=== PATIENT | male | born 1985 | race Caucasian/White ===

== ENCOUNTER 2017-01-22 14:13 | Emergency (ER) | payer BC ==
[~2017-01-22] VITALS: Ht 180.3 cm; Wt 102.0 kg
[2017-01-22 14:14] VITALS: Ht 180.3 cm; Wt 102.0 kg
[2017-01-22] MEDS ORDERED: LORAZEPAM 1 MG TAB PO ONE (15:00)
[2017-01-22 15:07] LABS: ADD SCAN DIFF NO
[2017-01-22 15:10] LABS: BASOPHILS % 0.4 % (0.0-2.0); EOSINOPHILS % 0.3 % (0.0-7.0); HEMATOCRIT 44.1 % (42.0-52.0); HEMOGLOBIN 14.8 g/dl (14.0-18.0); LYMPHOCYTES # 2.4 10^3/ul (0.8-2.9); LYMPHOCYTES % 36.5 % (15.0-51.0); MEAN CORPUSCULAR HEMOGLOBIN 27.7 pg (29.0-33.0); MEAN CORPUSCULAR HGB CONC 33.6 g/dl (32.0-37.0); MEAN CORPUSCULAR VOLUME 82.6 fl (82.0-101.0); MEAN PLATELET VOLUME 10.4 fl (7.4-10.4); MONOCYTE # 0.3 10^3/ul (0.3-0.9); MONOCYTES % 5.1 % (0.0-11.0); NEUTROPHIL # 3.8 10^3/ul (1.6-7.5); NEUTROPHILS % 57.6 % (39.0-77.0); PLATELET COUNT 256 10^3/UL (140-415); RED BLOOD COUNT 5.34 10^6/ul (4.70-6.10); RED CELL DISTRIBUTION WIDTH 12.2 % (11.5-14.5); WHITE BLOOD COUNT 6.7 10^3/ul (4.8-10.8)
[2017-01-22 15:22] LABS: ALBUMIN 4.5 g/dl (3.3-4.9); ALBUMIN/GLOBULIN RATIO 1.28; BILIRUBIN,INDIRECT 0.5 mg/dl (0-1.1); BILIRUBIN,TOTAL 0.5 mg/dl (0.2-1.3); CALCIUM 9.1 mg/dl (8.4-10.2); CREATININE 0.83 mg/dl (0.61-1.24)
--- NOTE | 2017-01-22 15:51 | RADRPT ---
PROCEDURE: XR Chest AP portable CLINICAL INDICATION: Short of breath TECHNIQUE: An AP portable radiograph of the chest was submitted. COMPARISON: None. FINDINGS: Support Hardware: None Cardiovascular: The cardiovascular silhouette appears unremarkable. Lung Gracia: The lung gracia appear clear with no nodule, alveolar infiltrate, or interstitial promi nence evident. Pleural Spaces: No pneumothorax or pleural effusion is identified. Osseous Structures: The osseous structures appear intact. Soft Tissues: The soft tissues appear unremarkable. IMPRESSION: Unremarkable portable chest. Physician Srini Date Time Electronically viewed and signed by Alo Fulton Physician on 01/22/2017 15:51 RH/
[2017-01-22] MEDS ORDERED: LORA-441 PO (16:00)
[2017-01-22 16:08] VITALS: BP 140/95; PULSE 85; RESP 16
--- NOTE | 2017-01-22 16:12 | ERD ---
ER Documentation Chief Complaint Date/Time DATE: 01/22/17 TIME: 16:09 Chief Complaint SOB x 1 hour HPI This is a 31-year-old male that presents to the ER with shortness of breath that started over the last hour. Patient was [place] he states that the [place] was very hot, he began to feel short of breath. Patient walked out of the [place] to get some fresh air however continue to feel short of breath. Patient then began to feel dizzy and lightheaded. When he was driving to the ER he began to experience palpitations which made shortness of breath worse. Patient has had episodes like this in the past which lasted a few seconds however this episode lasted longer became worried. The last episode occurred at the dentist while patient was getting a root canal. Patient denies any chest pain. He denies any recent travel. He denies any leg pain, redness, swelling. ROS 12 point review of systems was done, all negative except per HPI. Medications Home Meds Active Scripts Lorazepam* (Ativan*) 0.5 Mg Tablet, 0.5 MG PO Q8, #10 TAB Prov:SANTAKIM C 01/22/17 Allergies Allergies: Coded Allergies: No Known Allergy (Unverified , 01/22/17) PMhx/Soc Medical and Surgical Hx: pt denies Medical Hx, pt denies Surgical Hx Physical Exam Vitals Vital Signs Date Time Temp Pulse Resp B/P Pulse Ox O2 Delivery O2 Flow Rate FiO2 01/22/17 14:14 97.3 86 18 142/94 99 Physical Exam GENERAL: The patient is well developed and appropriate for usual state of health , in no apparent distress. HEENT: Atraumatic. Conjunctivae are pink. Pupils equal, round, and reactive to light. Extraocular muscles are grossly intact. Bilateral tympanic membranes are clear with no evidence of erythema, effusion or dulling of the light reflex. The oropharynx is clear with no erythema or exudates. NECK: C-spine is soft and supple. There is no cervical lymphadenopathy. CHEST: Clear to auscultation bilaterally. There are no rales, wheezes or rhonchi. HEART: Regular rate and rhythm. No murmurs, clicks, rubs or gallops. ABDOMEN: Soft, nontender and nondistended. Good bowel sounds. No rebound or guarding. No gross peritonitis. No gross organomegaly or masses. No Waldron sign or McBurney point tenderness. No pulsatile masses. BACK: No midline or flank tenderness. EXTREMITIES: Equal pulses bilaterally. There is no peripheral clubbing, cyanosis or edema. No focal swelling or erythema. Full range of motion. Grossly neurovascularly intact. NEURO: Alert and oriented. Cranial nerves II through XII are intact. Motor strength in all 4 extremities with 5/5 strength. Sensation grossly intact. Normal speech and gait. SKIN: There is no apparent rash or petechia. The skin is warm and dry. Result Diagram: 01/22/17 1450 01/22/17 1450 Results 24 hrs Laboratory Tests Test 01/22/17 14:50 White Blood Count 6.710^3/ul Red Blood Count 5.3410^6/ul Hemoglobin 14.8g/dl Hematocrit 44.1% Mean Corpuscular Volume 82.6fl Mean Corpuscular Hemoglobin 27.7pg Mean Corpuscular Hemoglobin Concent 33.6g/dl Red Cell Distribution Width 12.2% Platelet Count 87974^3/UL Mean Platelet Volume 10.4fl Neutrophils % 57.6% Lymphocytes % 36.5% Monocytes % 5.1% Eosinophils % 0.3% Basophils % 0.4% Nucleated Red Blood Cells % 0.0/100WBC Neutrophils # 3.810^3/ul Lymphocytes # 2.410^3/ul Monocytes # 0.310^3/ul Eosinophils # 0.010^3/ul Basophils # 0.010^3/ul Nucleated Red Blood Cells # 0.010^3/ul Sodium Level 137mmol/L Potassium Level 4.0mmol/L Chloride Level 104mmol/L Carbon Dioxide Level 25mmol/L Anion Gap 12 Blood Urea Nitrogen 14mg/dl Creatinine 0.83mg/dl Glucose Level 101mg/dl Calcium Level 9.1mg/dl Total Bilirubin 0.5mg/dl Direct Bilirubin 0.00mg/dl Indirect Bilirubin 0.5mg/dl Aspartate Amino Transf (AST/SGOT) 42IU/L Alanine Aminotransferase (ALT/SGPT) 71IU/L Alkaline Phosphatase 114IU/L Total Protein 8.0g/dl Albumin 4.5g/dl Globulin 3.50g/dl Albumin/Globulin Ratio 1.28 Current Medications Medications (Trade) Dose Ordered Sig/Ritika Route PRN Reason Start Time Stop Time Status Last Admin Dose Admin Lorazepam (Ativan) 1 mg ONCE ONCE PO 01/22/17 15:00 01/22/17 15:01 DC 01/22/17 14:50 Procedures/MDM Differential diagnosis includes but is not limited to; STEMI, dissection, pneumothorax, PE, esophageal rupture, tamponade, pneumonia, pericarditis, GERD, musculoskeletal, endocarditis, anxiety. At this time patient's shortness of breath and palpitations is likely anxiety. Suspicion for acute cardiac etiology is low. EKG was taken and read by Dr. Harrison. [address] elevation or T-wave inversion. PERC criteria is negative. Patient is to follow -up with his primary care doctor within 1-2 days or return to ER sooner if symptoms worsen. My medical decision making was discussed with the patient, he understands and agrees with plan. Departure Diagnosis: Primary Impression: Palpitations Additional Impressions: Shortness of breath Dizziness Condition: Stable Patient Instructions: Coping with Shortness of Breath: Controlling Stress, Possible Causes of Dizziness or Fainting Additional Instructions: Call your primary care doctor TOMORROW for an appointment during the next 1-2 days.See the doctor sooner or return here if your condition worsens before your appointment time. KIM PRATT Jan 22, 2017 16:12
== END 2017-01-22 16:12 | disposition home or self-care (01) ==
LOC: FTE 14:13
DX: R00.2 Palpitations (principal); R42 Dizziness and giddiness
CPT/HCPCS: 71010; 80053; 85025; 93005

== ENCOUNTER 2017-03-20 19:47 | Emergency (ER) | payer BC ==
[~2017-03-20] VITALS: Ht 182.9 cm; Wt 102.0 kg
[~2017-03-20 19:47] MED LIST: LORA-441 PO
[2017-03-20 20:00] VITALS: Ht 182.9 cm; Wt 102.0 kg
[2017-03-20] MEDS ORDERED: IBUP-1542 PO (20:24)
[2017-03-20] MEDS ORDERED: ALBU8.5H3 INH (20:24)
[2017-03-20] MEDS ORDERED: GUAI120S26 PO (20:24)
[2017-03-20] MEDS ORDERED: FLUT9.9S NASAL (20:24)
[2017-03-20] MEDS ORDERED: CETI10CA PO (20:24)
--- NOTE | 2017-03-20 20:50 | ERD ---
ER Documentation Chief Complaint Date/Time DATE: 03/20/17 TIME: 20:[address] for 2 days HPI 32-year-old male presents in emergency department for complaints of sore throat for 2 days. Patient described the pain as burning pain, 6/10 scale, is worse upon swallowing. Patient did not take any medications to help with symptoms. Patient is also having dry cough, does not cough up any phlegm or blood. Patient does not have any shortness breath has episodes of wheezing at times. Patient does not have any sick contacts. Patient did not take her medications up with symptoms. Patient has been having on and off fever. ROS All systems reviewed and are negative except as per history of present illness. Medications Home Meds Active Scripts Fluticasone Propionate (Flonase Allergy Relief) 9.9 Ml [place].susp, 1 SPRAY NASAL BID, #1 BOTTLE TO EACH NOSTRIL Prov:RASHMI ANTOINE NP 03/20/17 Ibuprofen* (Motrin*) 600 Mg Tab, 600 MG PO Q6H Y for PAIN AND OR ELEVATED TEMP, #30 TAB Prov:RASHMI ANTOINE NP 03/20/17 Cetirizine Hcl* (Zyrtec*) 10 Mg Capsule, 10 MG PO DAILY, #30 TAB.CHEW Prov:RASHMI ANTOINE NP 03/20/17 Pcfwytmvpal-E-Vhihttmuxi Hb* (Guaifenesin* DM Syrup) 120 Ml Syrup, 10 ML PO Q4H Y for COUGH, #120 ML Prov:RASHMI ANTOINE NP 03/20/17 Albuterol Sulfate* (Proair HFA*) 8.5 Gm Hfa.aer.ad, 2 PUFF INH Q4H Y for WHEEZING AND SOB, #1 INHALER Prov:RASHMI ANTOINE NP 03/20/17 Lorazepam* (Ativan*) 0.5 Mg Tablet, 0.5 MG PO Q8, #10 TAB Prov:KIM PRATT 01/22/17 Allergies Allergies: Coded Allergies: No Known Allergy (Unverified , 01/22/17) PMhx/Soc Immunizations: Up to date Medical and Surgical Hx: pt denies Medical Hx, pt denies Surgical Hx FmHx Family History: No coronary disease, No diabetes, No other Physical Exam Vitals Vital Signs Date Time Temp Pulse Resp B/P Pulse Ox O2 Delivery O2 Flow Rate FiO2 03/20/17 20:00 99.6 97 20 152/85 97 Physical Exam GENERAL: The patient is well developed and appropriate for usual state of health, in no apparent distress. HEENT: Atraumatic. Ears: Normal tympanic membrane, no erythema or bulging. No ear canal swelling. No ear discharge. Nose: Erythematous nasal turbinates with clear nasal discharge. Normal nasal discharge. Throat: oropharynx erythematous with postnasal drip. No tonsillar swelling or tonsillar exudates. No lymphadenopathy. CHEST: Clear to auscultation bilaterally. There are no rales, wheezes or rhonchi. HEART: Regular rate and rhythm. No murmurs, clicks, rubs or gallops. No S3 or S4. ABDOMEN: Soft, nontender and nondistended. Good bowel sounds. No rebound or guarding. No gross peritonitis. No gross organomegaly or masses. No Waldron sign or McBurney point tenderness. BACK: No midline or flank tenderness. EXTREMITIES: Equal pulses bilaterally. There is no peripheral clubbing, cyanosis or edema. No focal swelling or erythema. Full range of motion. Grossly neurovascularly intact. NEURO: Alert and oriented. Cranial nerves 2-12 intact. Motor strength in all 4 extremities with 5/5 strength. Sensation grossly intact. Normal speech and gait. SKIN: There is no apparent rash or petechia. The skin is warm and dry. HEMATOLOGIC AND LYMPHATIC: There is no evidence of excessive bruising or lymphedema. No gross cervical, axillary, or inguinal lymphadenopathy. Procedures/MDM Medical Decision Making: Patient symptoms are most likely consistent with acute bronchitis, which viral in origin. There is low suspicion for Pneumonia at this time since patients lungs sounds are clear, patient O2 saturation is normal and patient doesnt show any respiratory distress. Radiology exam is not indicated at this time. There is low suspicion for other cardiopulmonary emergencies at this time such as CHF, Pulmonary Embolism, Pneumothorax or any other cardiopulmonary emergencies at this time. There is low suspicion for sepsis. Patient appears well and is hemodynamically stable. Fever is controlled with medicines. . Disposition: Home. Condition: Stable Prescriptions: Guaifenesin DM Zyrtec ibuprofen albuterol Flonase Instructions: Patient is advised to take medications as prescribed. Patient is advised to rest. Patient advised to increase fluid intake, do humidifier at home and if possible, do salt water gargles. Patient is advised that if symptoms are worse, shortness of breath, uncontrolled fever, stridor, vomiting, worst signs and symptoms to return to emergency department immediately. Otherwise, patient is advised to follow up with primary doctor in 5-7 days. Departure Diagnosis: Primary Impression: Acute bronchitis Bronchitis organism: unspecified organism Qualified Code: J20.9 - Acute bronchitis, unspecified organism Condition: Stable Patient Instructions: Bronchitis With Wheezing (Adult) RASHMI ANTOINE NP Mar 20, 2017 20:50
== END 2017-03-20 20:30 | disposition home or self-care (01) ==
LOC: E/R 19:47
DX: J02.9 Acute pharyngitis, unspecified (principal)
CPT/HCPCS: 99284

== ENCOUNTER 2017-10-30 05:29 | Inpatient (IN) | END 2017-11-01 15:30 | disposition home or self-care (01) | DRG 440 ==